=== PATIENT | male | born 1975 | race Caucasian/White ===

== ENCOUNTER 2018-05-26 10:20 | Emergency (ER) | payer SELFPAY ==
[~2018-05-26] VITALS: Ht 172.7 cm; Wt 117.9 kg
[2018-05-26 11:06] LABS: ABSOLUTE BASOPHIL COUNT 0.1 /CUMM (0.0-0.2); ABSOLUTE EOSINOPHIL COUNT 0.4 /CUMM (0.0-0.7); ABSOLUTE LYMPH COUNT 3.4 /CUMM (1.2-3.4); ABSOLUTE MONOCYTE COUNT 0.4 /CUMM (0.10-0.60); BASOPHIL % 0.6 % (0.0-2.0); EOSINOPHIL % 5.4 % (0-5); GRANULOCYTE % 48.4 % (42.2-75.2); HEMATOCRIT 47.9 % (42-52); MEAN CORPUSCULAR HGB 31.2 PG (27.0-31.0); MEAN CORPUSCULAR HGB CONC 34.2 G/DL (33.0-37.0); MEAN CORPUSCULAR VOLUME 91.3 FL (80.0-94.0); MEAN PLATELET VOLUME 7.4 FL (7.4-10.4); PLATELET COUNT 371 /CUMM (130-400); RBC DISTRIBUTION WIDTH 13.4 % (11.5-14.5); RED BLOOD CELL CT 5.25 /CUMM (4.70-6.10); WHITE BLOOD CELL COUNT 8.3 /CUMM (4.8-10.8)
--- NOTE | 2018-05-26 12:52 | ED GENERAL ADULT ---
See Addendum History of Present Illness General Chief Complaint: Psychiatric Related Complaint Stated Complaint: BIBA FOR ETOH AND SI Source: patient Exam Limitations: no limitations Vital Signs & Intake/Output Vital Signs & Intake/Output Vital Signs Date Time Temp Pulse Resp B/P B/P Pulse O2 O2 Flow FiO2 Mean Ox Delivery Rate 05/27 0603 98.0 108 22 143/78 96 05/27 0601 98.0 108 22 143/78 05/27 0010 98.7 116 18 140/80 05/27 0001 98.7 116 18 140/80 93 Room Air 05/26 2149 97.1 78 22 143/82 98 05/26 2148 97.7 78 20 143/82 05/26 1857 98.2 118 16 128/86 94 Room Air 05/26 1400 98.2 101 16 129/78 96 Room Air 05/26 1035 98.6 122 18 132/80 95 Room Air ED Intake and Output 05/27 0000 05/26 1200 Intake Total 0 Output Total Balance 0 Intake, Oral 0 Patient 260 lb Weight Weight Reported by Patient Measurement Method Allergies Coded Allergies: No Known Allergies (05/26/18) Reconcile Medications No Known Home Medications Triage Note: PT BIBA ON PEER S/P CALL RECEIVED BY FRIEND WHO REPORTED PT MADE SI STATEMENT OF WANTING TO STAB HIMSELF WITH A KNIFE. PD ALSO REPORTED PT HAD BEEN DRINKING. DENIES SI/HI. Triage Nurses Notes Reviewed? yes HPI: Patient is an alcoholic with a past medical history significant for bipolar was not taking his medication. Patient's friend called the police stating that he was started kill himself with a knife. Pt denies suicidal or homicidal ideations. Denies sleep, appetite, or general life disturbances. (Hermelindo Winn MD) Past History Travel History Traveled to [place] past 21 day No Medical History Any Pertinent Medical History? 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 No (Hermelindo Winn MD) Review of Systems Review of Systems Constitutional: Reports: no symptoms, see HPI. EENTM: Reports: no symptoms. Respiratory: Reports: no symptoms. Cardiovascular: Reports: no symptoms. GI: Reports: no symptoms. Genitourinary: Reports: no symptoms. Musculoskeletal: Reports: no symptoms. Skin: Reports: no symptoms. Neurological/Psychological: Reports: no symptoms. Hematologic/Endocrine: Reports: no symptoms. Immunologic/Allergic: Reports: no symptoms. All Other Systems: Reviewed and Negative (Hermelindo Winn MD) Physical Exam Physical Exam General Appearance: well developed/nourished, no apparent distress, comfortable Comments: Gen.: Well-nourished, well-developed, no acute respiratory distress. Head: Normocephalic, atraumatic. Eyes: Normal inspection bilaterally Ears: Normal inspection bilaterally Nose: Normal inspection Throat/mouth : Moist mucosa Neck: Supple, full range of motion, no goiter Heart: Regular rate and rhythm, no murmurs rubs or gallops Lungs: Clear to auscultation bilaterally with normal air entry Chest: Nontender Back: Normal range of motion Abdomen: Soft, nontender, nondistended, normal bowel sounds Extremities: Normal range of motion grossly, equal radial pulses, no cyanosis clubbing or edema Neurologic: Cranial nerves grossly intact, speech is clear Skin: warm and dry Psychiatric: Calm, cooperative, no apparent delusions or hallucinations Core Measures ACS in differential dx? No CVA/TIA Diagnosis: No Sepsis Present: No Sepsis Focused Exam Completed? No (Hermelindo Winn MD) Progress Differential Diagnoses I considered the following diagnoses in my evaluation of the patient: Alcohol intoxication, illicit substance intoxication, suicidal ideations, depression Plan of Care: Orders Procedure Date/time Status Regular Diet 05/26 L Active CIWA 05/26 2136 Active Continuous Observation Monitor 05/26 1027 Active URINE DRUG SCREEN FOR ER ONLY 05/26 1027 Complete URINALYSIS 05/26 1027 Complete ETHANOL 05/26 1027 Complete COMPREHENSIVE METABOLIC PANEL 05/26 1027 Complete CBC WITHOUT DIFFERENTIAL 05/26 1027 Complete ED CRISIS PSYCH CONSULT 05/26 1027 Active Current Medications Sig/Danis Start time Last Medication Dose Stop Time Status Admin Nicotine 14 MG DAILY 05/26 1047 AC 05/26 (Nicotine Cq) 1145 Laboratory Tests 05/26/18 1305: Urine Opiates Screen < 100, Methadone Screen < 40, Barbiturate Screen < 60, Ur Phencyclidine Scrn < 6.00, Amphetamines Screen < 100, U Benzodiazepines Scrn < 85, Urine Cocaine Screen < 50, Urine Cannabis Screen 78.70 H, Urine Color YEL, Urine Clarity CLEAR, Urine pH 7.0, Ur Specific [place] 1.020, Urine Protein 100 H, Urine Ketones NEG, Urine Nitrite NEG, Urine Bilirubin NEG, Urine Urobilinogen 1.0, Ur Leukocyte Esterase NEG, Ur Microscopic SEDIMENT EXAMINED, Urine RBC RARE , Urine WBC RARE, Ur Epithelial Cells FEW, Urine Hemoglobin TRACE-INTACT H, Urine Glucose NEG 05/26/18 1045: Anion Gap 15, Estimated GFR > 60, BUN/Creatinine Ratio 10.0, Glucose 130 H, Calcium 8.9, Total Bilirubin 1.1, AST 88 H, ALT 123 H, Alkaline Phosphatase 102, Total Protein 8.3 H, Albumin 4.8, Globulin 3.5, Albumin/Globulin Ratio 1.4 , CBC w Diff NO MAN DIFF REQ, RBC 5.25, MCV 91.3, MCH 31.2 H, MCHC 34.2, RDW 13.4, MPV 7.4, Gran % 48.4, Lymphocytes % 40.8, Monocytes % 4.8, Eosinophils % 5.4 H, Basophils % 0.6, Absolute Granulocytes 4.0, Absolute Lymphocytes 3.4, Absolute Monocytes 0.4, Absolute Eosinophils 0.4, Absolute Basophils 0.1, Serum Alcohol 286.0 Initial ED EKG: none Hand-Off Endorsed To: Pavithra QUESADA,Irving Tellez Endorsed Time: 1916 Pending: consult (crisis) (Hermelindo Winn MD) Comments: 05/26/2018 9:36:28 PM patient signed out to me by 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 Per the crisis condition, patient will be reevaluated in the morning. 05/27/2018 2:03:47 AM patient is resting comfortably. 05/27/2018 7:07:29 AM patient signed out to Dr. 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 (Pavithra QUESADA,Irving Tellez) Departure Departure Disposition: STILL A PATIENT Condition: Stable Clinical Impression Primary Impression: Alcohol intoxication Qualifiers: Complication of substance-induced condition: with unspecified complication Qualified Code: F10.929 - Alcohol use, unspecified with intoxication, unspecified Secondary Impressions: Suicidal ideation Referrals: Patient Has No Primary Care Dr (PCP/Family) Departure Forms: Customer Survey General Discharge Information Prescriptions: Current Visit Scripts No Known Home Medications (Pa QUESADA,Hermelindo) Critical Care Note Critical Care Note Critical Care Time: non-applicable (Pa QUESADA,Hermelindo)
--- NOTE | 2018-05-26 20:15 | ED PSYCH CRISIS CONSULTATION ---
See Addendum Crisis Consult Basic Assessment Date of Consult: 05/26/18 Responsible Person/Accompanied By: MAILE on PEER Insurance Authorization: Insurance #1: Insurance name: SELF-PAY Phone number: Policy number: Group number: Authorization number: ED Provider: Patient's ED Provider: Hermelindo Winn MD Primary Care Physician: Patient's PCP: Patient Has No Primary Care Dr PCP's Phone Number: Current Psychiatrist: None Chief Complaint: Psychiatric Related Complaint Patient's Quote: "Long story short, my friend called and said something about knives." Present Illness: The patient is a 42 year old male, presenting to the ED by ambulance and on a PEER for SI and alcohol abuse. The patient was not evaluated earlier today, as he was not appropriate given his alcohol level. The patient was evaluated this evening after he was breathalyzed by nursing and found to be appropriate. He was alert, but somewhat lethargic during the evaluation. He states that his friend was concerned about comments he made about wanting to kill himself and called his parents and the police. The patient states that he "might has said it , I was really drunk." The patient reports that he has been diagnosed with Bipolar Disorder, however has not been in any treatment in about 10 years. He states that he is not able to recall where and when his last treatment episode occurred. He does remember being at [facility] is the past. He states that he is generally happy, however has been struggling with increasing anxiety and panic. He states that his depression is a 0 out of 10 and his anxiety is a 10 out of 10, 10 being the most severe. He denies any current SI or HI and states that he has never attempted to kill himself. He states that he has a lot to live for, including "his girls and his pets." Per the PEER there was a butter knife by his bed and he states that it was not there to harm himself with, but rather to open a beer bottle. He sates that his anxiety has made him feel paranoid and that he often feels that people are laughing at him. He denies any other symptoms of paranoia. He reports that he has a long history of alcohol abuse, however was sober for a year, prior to relapsing two weeks ago. He does admit to drinking at least 1 liter and additional alcoholic beverages, daily for the last week. He states that his trigger for relapse was an incident at work, where he made a mistake, noting he works for the [employer] service. He reports that he is , however has been staying with his girlfriend for the last two weeks, noting that he spends time with both his and his girlfriend. He has one daughter, who resides with her mother. He states that his sleep and appetite have been good. He has been feeling helpless, however is not sure if he feels hopeless. He reports having a trauma history, however did not elaborate. He does not believe that he needs any treatment right now and would like to go home. SW spoke to his girlfriend, Shana Vidal ([phone]), who states that she has been dating the patient for the last two years and that the patient has been staying with her for the last two weeks. She states that his friend, called to say that the patient had been making statements about wanting to stab himself with a knife. Shana states that she did not think that the patient would harm himself, however took all of the knives with her to work, "for peace of mind." She states that she has never known him to make any suicidal statements, however admits to him making suicidal threats in the past, " come pick me up or I'm going to kill myself." She states that he does have Bipolar, however he is not in any treatment because he does not believe in medications. Shana states that he had been sober for over 1 year, however relapsed about 2 weeks ago, after they argued and he had an issue at work. She believes that he is safe for discharge, as he loves his daughter and his dog and that he would not harm himself. The C-SSRS was completed and placed in the patients chart. Patient's Address: [address] [place] [address] Other Phone Number: Who Do You Live With? Other (see notes) (Currently staying with GF) Family/Informants Interviewed: Girlfriend- Shana Vidal [phone] Allergies - Coded Allergies: No Known Allergies (05/26/18) Current Medications - No Known Home Medications Laboratory Results: Laboratory Tests 05/26/18 1305: Urine Opiates Screen < 100, Methadone Screen < 40, Barbiturate Screen < 60, Ur Phencyclidine Scrn < 6.00, Amphetamines Screen < 100, U Benzodiazepines Scrn < 85, Urine Cocaine Screen < 50, Urine Cannabis Screen 78.70 H, Urine Color YEL, Urine Clarity CLEAR, Urine pH 7.0, Ur Specific [place] 1.020, Urine Protein 100 H, Urine Ketones NEG, Urine Nitrite NEG, Urine Bilirubin NEG, Urine Urobilinogen 1.0, Ur Leukocyte Esterase NEG, Ur Microscopic SEDIMENT EXAMINED, Urine RBC RARE , Urine WBC RARE, Ur Epithelial Cells FEW, Urine Hemoglobin TRACE-INTACT H, Urine Glucose NEG 05/26/18 1045: Anion Gap 15, Estimated GFR > 60, BUN/Creatinine Ratio 10.0, Glucose 130 H, Calcium 8.9, Total Bilirubin 1.1, AST 88 H, ALT 123 H, Alkaline Phosphatase 102, Total Protein 8.3 H, Albumin 4.8, Globulin 3.5, Albumin/Globulin Ratio 1.4 , CBC w Diff NO MAN DIFF REQ, RBC 5.25, MCV 91.3, MCH 31.2 H, MCHC 34.2, RDW 13.4, MPV 7.4, Gran % 48.4, Lymphocytes % 40.8, Monocytes % 4.8, Eosinophils % 5.4 H, Basophils % 0.6, Absolute Granulocytes 4.0, Absolute Lymphocytes 3.4, Absolute Monocytes 0.4, Absolute Eosinophils 0.4, Absolute Basophils 0.1, Serum Alcohol 286.0 Past History Past Medical History Neurological: NONE EENT: NONE Cardiovascular: NONE Respiratory: NONE Gastrointestinal: NONE Hepatic: NONE Renal: NONE Musculoskeletal: NONE Psychiatric: anxiety, depression, ETOH Endocrine: NONE Blood Disorders: NONE Cancer(s): 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 He is very connected to his daughter and his pets. Physical Limitations (Interventions): None noted Psychiatric Treatment History Psych Treatment Psychiatric Treatment Yes Inpatient Treatment Yes Outpatient Treatment Yes Location of Treatment [facility]. Reason for Treatment Bipolar and alcohol abuse Dates of Treatment Unclear- the patient could not elaborate on dates Diagnosis by History: Bipolar Substance Use/Abuse History Drug Use/Abuse Substances Used/Abused Yes Substance Used/Abused Alcohol First Use 7 years old Last Used Today; 05/26/2018 How much used/taken 1 Liter and additional spiked seltzers and beer How often Daily for the last two weeks. For how long Two weeks. Route of use Oral Substance Abuse Treatment Substance Abuse Treatment Past Substance Abuse [place] Yes Inpatient Treatment Yes Outpatient Treatment Yes Location of Treatment He reports multiple tx. episodes, however only names [facility] and [facility] Reason for Treatment Alcohol abuse Dates of Treatment He could not recall his last treatment episode Response to Treatment He states that he was sober for over a year, until relapsing two weeks ago. Comments: N/A Current Mental Status Mental Status Orientation: Person, Place, Situation Affect: Flat, Sad Speech: WNL Neuro-vegetative: Helpless Appearance Appearance- Dress/Hygiene: He was sittin in bed, in hospital attire disheveled. Behaviors Thought Process: WNL Thought Content: Paranoid, He reports that he has started to feel paranoid and believes that people are laughing at him. Memory: Impaired (He could not recall some hx.) Insight: Fair SI/HI Risk Assessment Past Suicidal Ideation/Attempts Yes (Per Girlfiend) Current Suicidal Ideation/Att No Past Homicidal Ideation/Att: No Current Homicidal Ideation/Attempts No Degree of Intent: Per the PEER, he made suicidal statements and was found with a butter knife by his bed. He states that he may have made statements, however noted he was intoxicated. He states that he has a lot to live for including "his girls and his pets." He denies feeling suicidal at this time. His girlfriend does not believe that he is suicidal and is not concerned about him hurting himself. Despite not being concerned, she did remove all of the knives from the house prior to leaving for work today. Danger To: Self Risk Factors: high anxiety/distress, SA/MH hospitalized, substance abuse, male Lethality Ratin PTSD Checklist PTSD Done? pt unable to participate ED Management Sitter: Yes Restraints: No DSM5/PS Stressors/Medical Prob Diagnosis' (DSM 5, Stressors, Medical): F31.9 Unspecified Bipolar Disorder F10.20 Alcohol Use Disorder Medical: Unremarkable Stressors: Work and relationship issues. Current GAF: 30 Comments: N/A Departure Disposition Psych Medical Clearance Date: 05/26/18 Medically Cleared at: 1900 Time Started: 1914 Time Ended: 1999 Psychiatrist Consulted: Dr. Grande Date Disposition Established: 05/26/18 Time Disposition Established: 2029 Plan for Disposition - Modality: Hold over for reassessment Rationale for Disposition: The patient presents on a PEER, after making suicidal statements and was intoxicated. He relapsed on alcohol two weeks ago. He denies any current SI or HI. He has been diagnosed with Bipolar Disorder, however has not been in any treatment for about 10 years. The case was discussed with Dr. Grande and the patient will be held over for reasessment in the AM. Additional Instructions: The case was dicussed with Dr. Grande, however due to technical issues the consult is being sent to Dr. Yo to co-sign. Referrals Patient Has No Primary Care Dr (PCP/Family)
[2018-05-27 12:26] VITALS: BP 133/78
--- NOTE | 2018-05-27 15:52 | ED PSYCHIATRIST/APRN CONSULT ---
Psychiatrist/[facility] ED Consult Assessment and Plan: The 42 years old white female patient was admitted in the emergency department yesterday on a 3 day. Certificate as he was under the influence of alcohol and had made a statement of something about knives "" however the patient was calm this morning and reports of having had issues with alcohol and his willingness to go to a program and try to maintain stability in the community Patient also reports having had a dominating , and then accommodating and enabling girlfriend who is willing to support him over the weekend and hope to have him return to his work as [employer] employee he has a good track record and wants to return to work and follow up with alcoholic Anonymous groups in the community he does admit to episodic alcohol binge drinking and denies of any thoughts to hurt himself or others. The patient related really did well overnight and had a corroborative information from his girlfriend and the about their good interventions to help him to be sober and take care of the family needs. Patient was seen with the crisis staff in the emergency department and overall has had labs with elevated ALT which reflects of his liver enzymes elevation attributed to his alcohol use disorder and is recommended to follow up with his primary care physician of some abnormal urinalysis findings with higher urine protein he also had cannabis seen in the urine and which is recommended to attend substance use programs to minimize substance use in the community overall the patient admits to occasional use of alcohol and marijuana and his strength is he is employed in a supportive family members mainly his girlfriend and his daughter and he is very fond of his dog which he said is turning around from an illness Brief mental status at this time of discharge the patient is a well-built average height individual who is able to ambulate well without any impediments R needing assistive devices he is alert and oriented to time place and person and acknowledges his problems with alcohol and is willing to attend alcohol programs in the community and was given information about available programs and also wanted to follow up with the psychiatric psychotherapy support was given numbers in the area for outpatient appointments he denies of any intrusive thoughts and hallucinatory experiences he appears to be calm cooperative and of average intelligence and is fairly Wall statements and has supportive family members and is looking forward for his discharge to resume to his work on Tuesday as he was on vacation this happened and feels bad about the episode and is willing to seek therapy and support in the community with the counseling and attending substance abuse programs close to his tone dictated by Dr. Grande. thank you
== END 2018-05-27 12:30 ==
LOC: ERH 10:20
PROVIDERS: Physician Assistant Medical
DX: F10.129 Alcohol abuse with intoxication, unspecified (principal); R45.851 Suicidal ideations; F41.9 Anxiety disorder, unspecified; F32.9 Major depressive disorder, single episode, unspecified; Z72.0 Tobacco use
CPT/HCPCS: 80307; 81001; 96372; G0463; G0480